=== PATIENT | male | born 1955 | race African-American/Black ===

== ENCOUNTER 2019-04-13 23:37 | Emergency (ER) | payer OTHER, BC ==
[2019-04-14] MEDS ORDERED: ONDANSETRON 4 MG/2 ML VIAL ONE (00:22)
[2019-04-14] MEDS ORDERED: NA CHLORIDE 0.9% 1,000 ML ONE (00:36)
[2019-04-14] MEDS ORDERED: MORPHINE 4 MG/ML SYR ONE (00:36)
[2019-04-14 01:02] LABS: Absolute Lymphocytes (CBC) 1.5 K/uL (0.7-4.9); Basophils % 0.4 % (0-1.3); Hematocrit 37.8 % (39.6-49.0); Lymphocytes % 27.1 % (15.3-44.8); MPV 8.3 fL (7.6-11.3); RBC Red Blood Cell Count 4.24 M/uL (4.33-5.43)
[2019-04-14 01:05] LABS: Albumin 3.3 g/dL (3.4-5.0); Bilirubin Direct 0.1 mg/dL (0-0.2); Bilirubin Total 0.4 mg/dL (0.2-1.0); Potassium 3.8 mmol/L (3.5-5.1); Protein, Total 6.6 g/dL (6.4-8.2)
[2019-04-14 01:40] LABS: Blood Morphology Comment NOT SEEN (NOT SEEN); Platelet Estimate ADEQ
[2019-04-14] MEDS ORDERED: metroNIDAZOLE 500 MG TABLET ONE (02:58)
[2019-04-14] MEDS ORDERED: CIPROFLOXACIN HCL 500 MG TAB ONE (02:59)
--- NOTE | 2019-04-14 03:14 | ER ---
Nurse's Notes [facility] Name: Danial Garcia Age: 64 yrs Sex: Male : 1955 Arrival Date: 04/13/2019 Time: 23:43 Bed 5 Private MD: Diagnosis: Abdominal and pelvic pain;Gastroenteritis;Diarrhea, unspecified Presentation: 04/14 00:00 Presenting complaint: Patient states: abd pain, described at sharp since 04/08/19. pt ak1 flew in from [place] and has had Diarrhea, vomiting started today. pt c/o bloating feeling and impacted feeling. Transition of care: patient was not received from another setting of care. Onset of symptoms was April 08, 2019. Risk Assessment: Do you want to hurt yourself or someone else? Patient reports no desire to harm self or others. Initial Sepsis Screen: Does the patient meet any 2 criteria? No. Patient's initial sepsis screen is negative. Does the patient have a suspected source of infection? No. Patient's initial sepsis screen is negative. Care prior to arrival: None. 00:00 Method Of Arrival: Ambulatory ak1 00:00 Acuity: KULWANT 3 ak1 Triage Assessment: 00:02 General: Appears uncomfortable, Behavior is calm, cooperative. Pain: Complains of pain ak1 in abdomen. EENT: No signs and/or symptoms were reported regarding the EENT system. Neuro: Level of Consciousness is awake, alert, obeys commands, Oriented to person, place, time, situation, Visual Training Aide are equal bilaterally Moves all extremities. Full function. Cardiovascular: No deficits noted. Respiratory: No deficits noted. GI: Abdomen is round Reports lower abdominal pain, upper abdominal pain, bloating, diarrhea, nausea. : No signs and/or symptoms were reported regarding the genitourinary system. Derm: No signs and/or symptoms reported regarding the dermatologic system. Musculoskeletal: No signs and/or symptoms reported regarding the musculoskeletal system. Historical: - Allergies: 00:02 No Known Allergies; ak1 - Home Meds: 00:02 None [Active]; ak1 - PMHx: 00:02 None; ak1 - PSHx: 00:02 Appendectomy; knee sx; ankle sx; shoulder sx; back sx; ak1 - Immunization history:: Adult Immunizations up to date. - Social history:: Smoking status: Patient/guardian denies using tobacco. - Ebola Screening: : No symptoms or risks identified at this time. Screenin:04 Abuse screen: Denies threats or abuse. Denies injuries from another. Nutritional ak1 screening: No deficits noted. Tuberculosis screening: No symptoms or risk factors identified. Fall Risk None identified. Assessment: 00:15 Reassessment: pt had to go to restroom, had BM. ak1 01:18 Reassessment: pt to CT. ak1 02:15 Reassessment: Patient appears in no apparent distress at this time. No changes from ak1 previously documented assessment. Patient and/or family updated on plan of care and expected duration. Pain level reassessed. Patient is alert, oriented x 3, equal unlabored respirations, skin warm/dry/pink. Patient states feeling better. 03:00 Reassessment: Patient appears in no apparent distress at this time. No changes from ak1 previously documented assessment. Patient and/or family updated on plan of care and expected duration. Pain level reassessed. Patient is alert, oriented x 3, equal unlabored respirations, skin warm/dry/pink. Patient states feeling better. Patient states symptoms have improved. Vital Signs: 00:02 BP 160 / 89; Pulse 69; Resp 20; Temp 98.5; Pulse Ox 100% on R/A; Weight 124.74 kg (R); ak1 Height 6 ft. 3 in. (190.50 cm) (R); Pain 7/10; 01:16 BP 144 / 86; Pulse 62; Resp 16; Pulse Ox 99% on R/A; ak1 02:22 BP 144 / 84; Pulse 56; Resp 16; Temp 99(TE); Pulse Ox 96% on R/A; ar5 00:02 Body Mass Index 34.37 (124.74 kg, 190.50 cm) ak1 ED Course: 04/13 23:43 Patient arrived in ED. cf2 23:57 Juan Miguel Jay MD is Attending Physician. kdr 04/14 00:01 Triage completed. ak1 00:02 Arm band placed on Patient placed in an exam room, on a stretcher, on pulse oximetry, ak1 Patient notified of wait time. 00:04 Patient has correct armband on for positive identification. Placed in gown. Bed in low ak1 position. Call light in reach. Side rails up X 1. Pulse ox on. NIBP on. 00:15 Shelley Trevino, RN is Primary Nurse. ak1 00:43 Initial lab(s) drawn, by me, sent to lab. Inserted saline lock: 22 gauge in right ak1 antecubital area, using aseptic technique. Blood collected. 01:32 CT completed. Patient tolerated procedure well. Patient moved to CT via stretcher. Patient moved back from CT. 01:41 CT Abd/Pelvis - IV Contrast Only In Process Unspecified. EDMS 03:17 No provider procedures requiring assistance completed. ak1 03:21 IV discontinued, intact, bleeding controlled, No redness/swelling at site. Pressure ak1 dressing applied. Administered Medications: 00:41 Drug: NS 0.9% 1000 ml Route: IV; Rate: 1 bolus; Site: right antecubital; ak1 02:55 Follow up: IV Status: Completed infusion; IV Intake: 100ml ak1 00:42 Drug: Zofran 4 mg Route: IVP; Site: right antecubital; ak1 03:23 Follow up: Response: No adverse reaction ak1 00:42 Drug: morphine 4 mg {Note: rass 0.} Route: IVP; Site: right antecubital; ak1 02:55 Follow up: Response: No adverse reaction ak1 03:03 Drug: Flagyl 500 mg Route: PO; ak1 03:04 Follow up: Response: No adverse reaction; Medication administered at discharge. ak1 03:04 Drug: Cipro 500 mg Route: PO; ak1 03:04 Follow up: Response: Medication administered at discharge. ak1 Intake: 02:55 IV: 100ml; Total: 100ml. ak1 Outcome: 03:13 Discharge ordered by . kdr 03:22 Discharged to home ambulatory. ak1 03:22 Condition: good 03:22 Discharge instructions given to patient, Instructed on discharge instructions, follow up and referral plans. no drinking with medication, no driving heavy equipment, medication usage, Demonstrated understanding of instructions, follow-up care, medications, Prescriptions given X 4. 03:22 Patient left the ED. ak1 Signatures: Dispatcher [employer] [facility] Juan Miguel Jay MD MD kdr Hagler, Ervin Shelley Trevino, ELIO RN ak1 Lizz Marinelli ar5 Norah Suazo cf2
--- NOTE | 2019-04-14 03:14 | EDPHYS ---
Physician Documentation [facility] Name: Danial Garcia Age: 64 yrs Sex: Male : 1955 Arrival Date: 04/13/2019 Time: 23:43 Bed 5 Private MD: ED Physician Juan Miguel Jay HPI: 04/14 05:11 This 64 yrs old Black Male presents to ER via Ambulatory with complaints of kdr Nausea/Vomiting/Diarrhea. 05:11 The patient presents to the emergency department with nausea, that is mild, vomiting, kdr that is intermittent, diarrhea, Frequent, abdominal pain, of the abdomen diffusely, described as achy, burning, crampy, intermittent, vague,\E\ waxing and waning, and does not radiate. Onset: The symptoms/episode began/occurred 1 week(s) ago. Possible causes: bad food exposure, The patient was traveling in [place]/ [facility] and [facility] when he became ill. Since returning, he has continued to have copious diarrhea, travel. The symptoms are aggravated by nothing. food , The symptoms are alleviated by nothing. Associated signs and symptoms: Pertinent positives: abdominal pain, diarrhea, nausea, vomiting, Pertinent negatives: belching, constipation, fever, flatulence, GI bleeding, hematuria. Severity of symptoms: At their worst the symptoms were mild moderate just prior to arrival, in the emergency department the symptoms are unchanged. The patient has not experienced similar symptoms in the past. The patient has not recently seen a physician. Historical: - Allergies: 00:02 No Known Allergies; ak1 - Home Meds: 00:02 None [Active]; ak1 - PMHx: 00:02 None; ak1 - PSHx: 00:02 Appendectomy; knee sx; ankle sx; shoulder sx; back sx; ak1 - Immunization history:: Adult Immunizations up to date. - Social history:: Smoking status: Patient/guardian denies using tobacco. - Ebola Screening: : No symptoms or risks identified at this time. ROS: 05:11 Constitutional: Negative for fever, chills, and weight loss, Eyes: Negative for injury, kdr pain, redness, and discharge, ENT: Negative for injury, pain, and discharge, Neck: Negative for injury, pain, and swelling, Cardiovascular: Negative for chest pain, palpitations, and edema, Respiratory: Negative for shortness of breath, cough, wheezing, and pleuritic chest pain, Back: Negative for injury and pain, : Negative for injury, bleeding, discharge, and swelling, MS/Extremity: Negative for injury and deformity, Skin: Negative for injury, rash, and discoloration, Neuro: Negative for headache, weakness, numbness, tingling, and seizure activity. Psych: Negative for depression, anxiety, suicide ideation, homicidal ideation, and hallucinations, Allergy/Immunology: Negative for hives, rash, and allergies, Endocrine: Negative for neck swelling, polydipsia, polyuria, polyphagia, and marked weight changes, Hematologic/Lymphatic: Negative for swollen nodes, abnormal bleeding, and unusual bruising. 05:11 Abdomen/GI: Positive for abdominal pain, nausea and vomiting, nausea, vomiting, and diarrhea, diarrhea, Negative for constipation, abdominal distension, anorexia, dysphagia, hematemesis, black/tarry stool, rectal pain, rectal bleeding, bowel incontinence. Exam: 05:11 Constitutional: This is a well developed, well nourished patient who is awake, alert, kdr and in no acute distress. Head/Face: Normocephalic, atraumatic. Eyes: Pupils equal round and reactive to light, extra-ocular motions intact. Lids and lashes normal. Conjunctiva and sclera are non-icteric and not injected. Cornea within normal limits. Periorbital areas with no swelling, redness, or edema. Neck: Trachea midline, no thyromegaly or masses palpated, and no cervical lymphadenopathy. Supple, full range of motion without nuchal rigidity, or vertebral point tenderness. No Meningismus. Chest/axilla: Normal chest wall appearance and motion. Nontender with no deformity. No lesions are appreciated. Cardiovascular: Regular rate and rhythm with a normal S1 and S2. No gallops, murmurs, or rubs. Normal PMI, no JVD. No pulse deficits. Respiratory: Lungs have equal breath sounds bilaterally, clear to auscultation and percussion. No rales, rhonchi or wheezes noted. No increased work of breathing, no retractions or nasal flaring. Back: No spinal tenderness. No costovertebral tenderness. Full range of motion. Skin: Warm, dry with normal turgor. Normal color with no rashes, no lesions, and no evidence of cellulitis. MS/ Extremity: Pulses equal, no cyanosis. Neurovascular intact. Full, normal range of motion. Neuro: Awake and alert, GCS 15, oriented to person, place, time, and situation. Cranial nerves II-XII grossly intact. Motor strength 5/5 in all extremities. Sensory grossly intact. Cerebellar exam normal. Normal gait. Psych: Awake, alert, with orientation to person, place and time. Behavior, mood, and affect are within normal limits. 05:11 Abdomen/GI: Inspection: abdomen appears normal, Bowel sounds: active, Palpation: soft, mild abdominal tenderness, in all quadrants. Vital Signs: 00:02 BP 160 / 89; Pulse 69; Resp 20; Temp 98.5; Pulse Ox 100% on R/A; Weight 124.74 kg (R); ak1 Height 6 ft. 3 in. (190.50 cm) (R); Pain 7/10; 01:16 BP 144 / 86; Pulse 62; Resp 16; Pulse Ox 99% on R/A; ak1 02:22 BP 144 / 84; Pulse 56; Resp 16; Temp 99(TE); Pulse Ox 96% on R/A; ar5 00:02 Body Mass Index 34.37 (124.74 kg, 190.50 cm) ak1 MDM: 03:13 Patient medically screened. kdr 05:11 Data reviewed: vital signs, nurses notes, lab test result(s). Counseling: I had a kdr detailed discussion with the patient and/or guardian regarding: the historical points, exam findings, and any diagnostic results supporting the discharge/admit diagnosis, lab results, radiology results, the need for outpatient follow up. 04/14 00:41 Order name: Basic Metabolic Panel; Complete Time: 02:52 EDMS 04/14 00:25 Order name: CT Abd/Pelvis - IV Contrast Only gs 04/14 00:41 Order name: Liver (Hepatic) Function; Complete Time: 02:52 EDMS 04/14 00:41 Order name: Lipase; Complete Time: 02:52 EDMS 04/14 00:41 Order name: Creatinine (Radiology Only); Complete Time: 02:52 EDMS 04/14 00:41 Order name: CBC with Automated Diff; Complete Time: 02:52 EDMS 04/14 01:19 Order name: Manual Differential; Complete Time: 02:52 EDMS 04/13 23:58 Order name: IV Saline Lock; Complete Time: 00:42 04/13 23:58 Order name: Labs collected and sent; Complete Time: 00:42 Administered Medications: 00:41 Drug: NS 0.9% 1000 ml Route: IV; Rate: 1 bolus; Site: right antecubital; ak1 02:55 Follow up: IV Status: Completed infusion; IV Intake: 100ml ak1 00:42 Drug: Zofran 4 mg Route: IVP; Site: right antecubital; ak1 03:23 Follow up: Response: No adverse reaction ak1 00:42 Drug: morphine 4 mg {Note: rass 0.} Route: IVP; Site: right antecubital; ak1 02:55 Follow up: Response: No adverse reaction ak1 03:03 Drug: Flagyl 500 mg Route: PO; ak1 03:04 Follow up: Response: No adverse reaction; Medication administered at discharge. ak1 03:04 Drug: Cipro 500 mg Route: PO; ak1 03:04 Follow up: Response: Medication administered at discharge. ak1 Disposition: 04/14/19 03:13 Discharged to Home. Impression: Abdominal and pelvic pain, Gastroenteritis, Diarrhea, unspecified. - Condition is Stable. - Discharge Instructions: Abdominal Pain, Adult, [id number], Diarrhea, Adult, [id number]. - Prescriptions for Bentyl 20 mg Oral Tablet - take 1 tablet by ORAL route every 6 hours As needed; 20 tablet. Cipro 500 mg Oral Tablet - take 1 tablet by ORAL route every 12 hours for 10 days; 20 tablet. Flagyl 500 mg Oral Tablet - take 1 tablet by ORAL route every 6 hours for 10 days; 40 tablet. Lomotil 2.5- 0.025 mg Oral Tablet - take 1 tablet by ORAL route every 6 hours As needed; 20 tablet. - Medication Reconciliation Form, Thank You Letter form. - Follow up: Private Physician; When: 2 - 3 days; Reason: If symptoms return, Further diagnostic work-up, Recheck today's complaints, Continuance of care, Re-evaluation by your physician. - Problem is an ongoing problem. - Symptoms have improved. Signatures: Dispatcher [employer] [facility] Juan Miguel Jay MD MD [facility] Shelley Trevino RN RN ak1 Jc Chavira MD MD gs Corrections: (The following items were deleted from the chart) 00:45 00:40 BASIC METABOLIC PANEL+C.LAB.BRZ ordered. [facility] EDMT 00:45 00:40 CBC+H.LAB.BRZ ordered. [facility] 00:45 00:40 Creatinine for Radiology+C.LAB.BRZ ordered. [facility] 00:45 00:40 HEPATIC FUNCTION+C.LAB.BRZ ordered. [facility] 00:45 00:40 LIPASE+C.LAB.BRZ ordered. [facility] 03:22 03:13 04/14/2019 03:13 Discharged to Home. Impression: Abdominal and pelvic pain; ak1 Gastroenteritis; Diarrhea, unspecified. Condition is Stable. Forms are Medication Reconciliation Form, Thank You Letter, Antibiotic Education, Prescription Opioid Use. Follow up: Private Physician; When: 2 - 3 days; Reason: If symptoms return, Further diagnostic work-up, Recheck today's complaints, Continuance of care, Re-evaluation by your physician. Problem is an ongoing problem. Symptoms have improved. kdr
[2019-04-14 04:21] VITALS: BP 144/84; TEMP 99; O2SAT 96
--- NOTE | 2019-04-14 12:10 | RAD REPORT ---
EXAM DESCRIPTION: CT - Abdomen Pelvis W Contrast - 04/14/2019 4:20 am CLINICAL HISTORY: Diarrhea;Abd pain;Epigastric pain COMPARISON: None. TECHNIQUE: CT ABDOMEN PELVIS WITH IV CONTRAST on 04/14/2019 12:25 AM CDT This exam was performed according to our departmental dose-optimization program, which includes autom ated exposure control, adjustment of the mA and/or kV according to patient size and/or use of iterati ve reconstruction technique. FINDINGS: Lower lungs are clear. Abdomen: The liver is normal in appearance. There is no biliary dilatation. Gallbladder is normal in appearance. The pancreas and spleen are normal in appearance. The adrenal glands and kidneys are unre markable. Abdominal aorta is normal in course and caliber without aneurysm. There is no free air. There is no r etroperitoneal adenopathy. Pelvis: There are occasional distal colonic diverticula. Urinary bladder is unremarkable. There is tr ayaan free pelvic fluid. Appendix is not clearly seen. Skeleton: There are no acute osseous findings. No suspicious bony lesions. Posterior fusion of L4 and L5. IMPRESSION: No definite acute inflammatory process. Appendix not clearly seen. Electronically signed by: Simon Zhang MD 04/14/2019 1:47 AM CDT Due to temporary technical issues with the PACS/Fluency reporting system, reports are being signed by the in house radiologist as a courtesy to ensure prompt reporting. The interpreting radiologist is f ully responsible for the content of the report.
== END 2019-04-14 03:22 | disposition home or self-care (01) ==
LOC: ER 23:37
DX: K52.9 Noninfective gastroenteritis and colitis, unspecified (principal)
CPT/HCPCS: 96361; 85025; 80048; 36415; 80076; 83690; 74177; 96375; 96374; 99284; Q9967; J7030; J2405